=== PATIENT | female | born 1990 | race Caucasian/White ===

== ENCOUNTER 2016-11-30 16:51 | Emergency (ER) | payer OTHER ==
[2016-11-30 18:21] LABS: Basophils # (A) 0.1 k/uL (0-0.2); Basophils % (A) 1 %; CH 28.5; CHCM 33.5; Eosinophils # (A) 0.2 k/uL (0-0.7); Eosinophils % (A) 2 %; HCT 41.4 % (34.0-46.0); HDW 2.25; HGB 13.7 gm/dL (11.4-16.0); Luc # (Auto) 0.17; Luc % (Auto) 2; Lymphocytes # (A) 2.4 k/uL (1.0-4.8); Lymphocytes % (A) 23 %; MCH 28.2 pg (25.0-35.0); MCHC 33.1 g/dL (31.0-37.0); MCV 85.3 fL (80.0-100.0); Mean Platelet Volume 6.9; Monocytes # (A) 0.6 k/uL (0-1.0); Monocytes % (A) 5 %; Neutrophils # (A) 7.3 k/uL (1.3-7.7); Neutrophils % (A) 68 %; RBC 4.86 m/uL (3.80-5.40); RDW 12.7 % (11.5-15.5); WBC 10.7 k/uL (3.8-10.6); WBC (Perox) 10.96
[2016-11-30 18:48] LABS: Anion Gap 11 mmol/L; Blood Urea Nitrogen 13 mg/dL (7-17); Calcium 9.4 mg/dL (8.4-10.2); Carbon Dioxide 25 mmol/L (22-30); Chloride 105 mmol/L (98-107); Glucose 97 mg/dL (74-99); Non-African American GFR(MDRD) >60 (>60 ml/min/1.73 sqM); Potassium 3.9 mmol/L (3.5-5.1); Sodium 141 mmol/L (137-145)
--- NOTE | 2016-11-30 19:19 | US ---
EXAMINATION TYPE: US OB <=14 wks transvag DATE OF EXAM: 11/30/2016 7:05 PM COMPARISON: NONE CLINICAL HISTORY: Heavy vaginal bleeding. cramping EXAM PERFORMED: Transvaginal (TV) and Transabdominal (TA) EXAM MEASUREMENTS: GESTATIONAL AGE / DATING Physician Established: Not established Dates by LMP: (6 weeks/2 days) EDC: 07/24/2017 Dates by First Scan: No previous Dates by Current Scan for: No pole visualized on this exam MATERNAL ANATOMY Uterus: 7.9 x 4.7 x 5.9 cm Right Ovary: 3.4 x 2.0 x 1.9 cm Left Ovary: 2.0 x 1.2 x 2.0 cm Post CDS / Adnexa: wnl Presence of free fluid: No Presence of corpus luteal cyst: Yes, right ovary measuring 1.7 x 1.2 x 1.0 cm Presence of subchorionic bleed: No GESTATION / SURVEY MSD: 0.76 cm Too small to measure Yolk Sac (normal less than 6mm): 1 mm Date of LMP: 10/17/2016 Beta HcG (if available): Not available at time of exam TECHNOLOGIST IMPRESSION: Within the SABRINA/cervical area there is a probable gestational sac with yolk sac. No pole is visualized. Possible spontaneous in progress IMPRESSION: There is an irregular intrauterine gestational sac that measures 11 x 3 x 8 mm. There is a yolk sac. No pole is seen. I would consider possibilities of very early intrauterine as well as blighted ovum and incomplete in this patient with bleeding.
[2016-11-30 19:30] VITALS: BP 122/70; PULSE 97; RESP 18; TEMP 98.7
--- NOTE | 2016-11-30 19:31 | ED ---
General Adult HPI - General Chief complaint: Vaginal Bleeding Stated complaint: Vaginal Bleeding Time Seen by Provider: 11/30/16 17:37 Source: patient, family, RN notes reviewed, old records reviewed Mode of arrival: ambulatory Limitations: no limitations - History of Present Illness Initial comments: 25-year-old female presenting for vaginal bleeding. Patient states that she had a positive test about 3 weeks ago. She states over the past 24 hours she began having some vaginal bleeding. Today she had significant increase of the bleeding and passage of some tissue and clots. She called Dr. Charles's office and was sent for some outpatient lab testing. She states that she continued to bleed so she came to the ER for evaluation. She denies any significant abdominal pain associated. She states that she is . There are no complications with her first . She denies any dizziness or loss consciousness. She she denies any urinary symptoms. - Related Data Home Medications Medication Instructions Recorded Confirmed Pnv with Ca,No.72/Iron/FA 1 tab PO DAILY 10/20/14 11/30/16 [ Vitamin with Low Iron] Folic Acid 0.4 mg PO DAILY 11/30/16 11/30/16 Allergies Allergy/AdvReac Type Severity Reaction Status Date / Time macadamia nut oil Allergy Rash/Hives Verified 11/30/16 18:23 Review of Systems ROS Statement: Those systems with pertinent positive or pertinent negative responses have been documented in the HPI. ROS Other: All systems not noted in ROS Statement are negative. Past Medical History Past Medical History: Asthma Additional Past Medical History / Comment(s): O+, abs neg, Rub Imm, RPR NR, Hep B neg, toxo neg. History of Any Multi-Drug Resistant Organisms: None Reported Past Surgical History: Orthopedic Surgery Additional Past Surgical History / Comment(s): Ankle surgery. Past Anesthesia/Blood Transfusion Reactions: No Reported Reaction Past Psychological History: No Psychological Hx Reported Smoking Status: Never smoker Past Alcohol Use History: None Reported Past Drug Use History: None Reported - Past Family History Mother History Unknown: Yes Family Medical History: Hypertension General Exam - General Exam Comments Initial Comments: General: Awake and Alert. No acute distress. Does not appear acutely ill. Eyes: JERARDO, EOM intact. No nystagmus. No scleral icterus. HENT: Atraumatic, normocephalic. Mucous membranes moist. Trachea midline. Neck: The neck is supple, there is no tenderness or JVD. Cardiovascular: Regular rate and rhythm. No murmur, rub, or gallop is appreciated. Distal pulses intact. Respiratory: Lungs are clear to auscultation bilaterally. No wheezes, rales, rhonchi. No respiratory distress. Gastrointestinal: Soft, Nontender. No rebound or guarding. Non-distended. No masses or organomegaly noted. No CVA tenderness. Musculoskeletal: No tenderness. Normal ROM. No gross deformity. No strength deficits. Neurological: A&Ox3. CN II-XII grossly intact, There are no obvious motor or sensory deficits. Coordination appears grossly intact. Speech is normal. Skin: Skin is warm and dry and no rashes or lesions are noted. Psychiatric: Cooperative, appropriate mood & affect, normal judgment. Limitations: no limitations Course Vital Signs 11/30/16 11/30/16 17:01 19:28 Temperature 97.5 F L 98.7 F Pulse Rate 80 97 Respiratory 16 18 Rate Blood Pressure 131/96 122/70 O2 Sat by Pulse 100 97 Oximetry Medical Decision Making - Medical Decision Making 25-year-old female presenting for bleeding in early . Abdomen soft without evidence of peritonitis. Lab workup ordered, plan for US with bleeding in early . Ultrasound does show intrauterine gestational sac but no evidence of fetus at this point. Could reflect very early versus blighted ovum. Given the patient's clinical symptoms as concerning for partial miscarriage at this time. Labwork with stable CBC. Pt with O+ blood, does not require rhogam. Patient reevaluated, remained stable. Updated results and imaging. Discussed likely miscarriage at this time, but possible early . Discussed close follow-up with Dr. Charles for repeat beta hCG testing as well. I did call and discuss with Dr. Charles who agrees with plan for discharge home and outpatient follow-up. She states that her nurse will call to arrange for follow-up tomorrow with patient. Discussed continuing vitamins. Discussed expectations over the next few days in the event likely miscarriage regarding vaginal bleeding and cramping. Discussed concerning signs symptoms for immediate return to the ED. Patient and family are agreeable with plan and discharge home. - Lab Data Result diagrams: 11/30/16 18:10 11/30/16 18:10 Lab Results 11/30/16 11/30/16 11/30/16 Range/Units 18:10 18:10 18:10 WBC 10.7 H (3.8-10.6) k/uL RBC 4.86 (3.80-5.40) m/uL Hgb 13.7 (11.4-16.0) gm/dL Hct 41.4 (34.0-46.0) % MCV 85.3 (80.0-100.0) fL MCH 28.2 (25.0-35.0) pg MCHC 33.1 (31.0-37.0) g/dL RDW 12.7 (11.5-15.5) % Plt Count 244 (150-450) k/uL Neutrophils % 68 % Lymphocytes % 23 % Monocytes % 5 % Eosinophils % 2 % Basophils % 1 % Neutrophils # 7.3 (1.3-7.7) k/uL Lymphocytes # 2.4 (1.0-4.8) k/uL Monocytes # 0.6 (0-1.0) k/uL Eosinophils # 0.2 (0-0.7) k/uL Basophils # 0.1 (0-0.2) k/uL Sodium 141 (137-145) mmol/L Potassium 3.9 (3.5-5.1) mmol/L Chloride 105 (98-107) mmol/L Carbon Dioxide 25 (22-30) mmol/L Anion Gap 11 mmol/L BUN 13 (7-17) mg/dL Creatinine 0.58 (0.52-1.04) mg/dL Est GFR (MDRD) Af Amer >60 (>60 ml/min/1.73 sqM) Est GFR (MDRD) Non-Af >60 (>60 ml/min/1.73 sqM) Glucose 97 (74-99) mg/dL Calcium 9.4 (8.4-10.2) mg/dL Blood Type O Positive Blood Type Recheck No Antibody Screen NEGATIVE Spec Expiration Date 12/03/2016 - 2309 - Radiology Data Radiology results: report reviewed, image reviewed Disposition Clinical Impression: Incomplete miscarriage, Vaginal bleeding in Disposition: HOME SELF-CARE Condition: Stable Instructions: Miscarriage (ED) Referrals: None,Stated [Primary Care Provider] - 1-2 days Time of Disposition: 19:46
== END 2016-11-30 19:59 | disposition home or self-care (01) ==
LOC: EC 16:51
DX: O03.4 Incomplete spontaneous abortion without complication (principal); Z91.018 Allergy to other foods
CPT/HCPCS: 36415; 76801; 76817; 80048; 85025; 86850; 86900; 86901; 99284

== ENCOUNTER → 2016-11-30 | Outpatient (CLI) | payer OTHER | END | disposition home or self-care (01) | LOC: LABWHC1 13:57 | PROVIDERS: ATTEND Obstetrics & Gynecology | DX: Z34.80 Encounter for supervision of other normal pregnancy, unspecified trimester (principal); Z3A.00 Weeks of gestation of pregnancy not specified | CPT/HCPCS: 36415; 84702 ==

== ENCOUNTER → 2016-12-02 | Outpatient (CLI) | payer OTHER | END | disposition home or self-care (01) | LOC: LABWHC1 09:15 | PROVIDERS: ATTEND Obstetrics & Gynecology | DX: Z34.80 Encounter for supervision of other normal pregnancy, unspecified trimester (principal); Z3A.00 Weeks of gestation of pregnancy not specified | CPT/HCPCS: 36415; 84702 ==

== ENCOUNTER → 2017-04-20 | Outpatient (CLI) | payer OTHER ==
[2017-04-20 10:37] LABS: CH 27.9; CHCM 32.8; HCT 39.9 % (34.0-46.0); HDW 2.23; HGB 13.2 gm/dL (11.4-16.0); MCH 28.3 pg (25.0-35.0); MCHC 33.2 g/dL (31.0-37.0); MCV 85.4 fL (80.0-100.0); Mean Platelet Volume 6.6; RBC 4.67 m/uL (3.80-5.40); RDW 13.9 % (11.5-15.5); WBC 10.9 k/uL (3.8-10.6)
[2017-04-20 10:44] LABS: Glucose 59 mg/dL (74-99); Non-African American GFR(MDRD) >60 (>60 ml/min/1.73 sqM)
[2017-04-20 11:16] LABS: Hepatitis B Surface Ag Index 0.06
[2017-04-20 17:04] LABS: Treponemal Ab Non-Reactive (Non-Reactive)
[2017-04-21 04:36] LABS: Toxoplasma Antibody (IgG) <3.0 IU/mL (<7.2)
== END | disposition home or self-care (01) ==
LOC: LABWHC1 10:17
PROVIDERS: ATTEND Obstetrics & Gynecology
DX: Z34.81 Encounter for supervision of other normal pregnancy, first trimester (principal); R53.83 Other fatigue
CPT/HCPCS: 36415; 82565; 82947; 85027; 86762; 86777; 86778; 86780; 86850; 86900; 86901; 87340; 87390

== ENCOUNTER 2017-06-23 16:42 | Outpatient (CLI) | payer OTHER ==
[2017-06-23 19:19] VITALS: BP 118/69; PULSE 75; RESP 16; TEMP 98.2
--- NOTE | 2017-06-24 06:30 | P.MSEPDOC ---
Presenting Problems - Arrival Data Date of Arrival on Unit: 06/23/17 Time of Arrival on Unit: 16:42 Mode of Transport: Ambulatory - Complaint OB-Reason for Admission/Chief Complaint: Vaginal Bleeding Comment: cramping and spotting Medical History - Information : 3 Para: 1 Term: 1 : 0 Abortions: Spontaneous or Elective: 1 Number of Living Children: 1 - Gestational Age Expected Date of Delivery: 11/09/17 Gestational Age by IMELDA (wks/days): 20 Weeks and 1 Days Review of Systems - Review of Systems Constitutional: No problems Breast: No problems ENT: No problems Cardiovascular: No problems Respiratory: No problems Gastrointestinal: No problems Genitourinary: No problems Musculoskeletal: No problems Neurological: No problems Skin: No problems Vital Signs - Temperature Temperature: 98.2 F Temperature Source: Oral - Pulse Right Pulse Rate: 75 Pulse Assessment Method: Automatic Cuff - Respirations Respiratory Rate: 16 Oxygen Delivery Method: Room Air - Blood Pressure Right Arm Blood Pressure: 118/69 Blood Pressure Mean: 85 Blood Pressure Source: Automatic Cuff Medical Screen Scoring (Pre) - Cervical Exam Dilation: 0 cm = 0 - Uterine Contractions Frequency: N/A Duration: N/A Intensity: N/A - Maternal Vital Signs Maternal Temperature: N/A Maternal Blood Pressure: N/A Signs of Preeclampsia: N/A Maternal Respirations: N/A - Maternal Trauma Maternal Trauma: N/A - Assessment Heart Rate - NICHD Category: Category I (Normal) = 0 - Total Score Total Score (Pre): 0 - Level of Risk Level of Risk: N/A Physician Notification (Pre) - Physician Notified Physician Notified Date: 06/23/17 Physician Notified Time: 17:09 Spoke With: Carleen Irwin Order Received: Yes - Notification Comment Comment: cramping and spotting post intercourse, discharge if cervix closed Disposition - Disposition OB Disposition: Triage, Discharge to home, Written follow up instructions reviewed Discharge Date: 06/23/17 Discharge Time: 17:15 I agree with the RN Medical Screening Exam: Yes Risk & Benefit of care provided described in d/c instruction: Yes Diagnosis: SPOTTING COMPLICATING , SECOND TRIMESTER (Patient had had intercourse in the last 24 hours and thought to be secondary to this.)
== END 2017-06-23 17:15 | disposition home or self-care (01) ==
LOC: FBPOP 16:42
PROVIDERS: ATTEND Obstetrics & Gynecology
DX: O26.852 Spotting complicating pregnancy, second trimester (principal); Z3A.20 20 weeks gestation of pregnancy
CPT/HCPCS: 99213

== ENCOUNTER 2017-11-01 03:50 | Outpatient (CLI) | payer BC ==
[2017-11-01 04:24] VITALS: PULSE 96; RESP 16; TEMP 97.2
--- NOTE | 2017-11-01 07:09 | P.MSEPDOC ---
Presenting Problems - Arrival Data Date of Arrival on Unit: 11/01/17 Time of Arrival on Unit: 03:50 Mode of Transport: Wheelchair - Complaint OB-Reason for Admission/Chief Complaint: Possible Onset of Labor Medical History - Information : 3 Para: 1 Term: 1 : 0 Abortions: Spontaneous or Elective: 1 Number of Living Children: 1 - Gestational Age Gestational Age by IMELDA (wks/days): 38 Weeks and 6 Days - History Complications: GBS+ Review of Systems - Review of Systems Constitutional: No problems Breast: No problems ENT: No problems Cardiovascular: No problems Respiratory: No problems Gastrointestinal: No problems Genitourinary: No problems Musculoskeletal: No problems Neurological: No problems Skin: No problems Vital Signs - Temperature Temperature: 97.2 F Temperature Source: Temporal Artery Scan - Pulse Right Brachial Pulse Rate: 96 Pulse Assessment Method: Automatic Cuff - Respirations Respiratory Rate: 16 Oxygen Delivery Method: Room Air O2 Sat by Pulse Oximetry: 97 Medical Screen Scoring (Pre) - Cervical Exam Dilation: 4-7 cm = 2 Effacement: More than 50% = 2 Membranes: Intact - Uterine Contractions Frequency: > 5 minutes apart = 1 Duration: N/A Intensity: N/A - Maternal Vital Signs Maternal Temperature: N/A Maternal Blood Pressure: N/A Signs of Preeclampsia: N/A Maternal Respirations: N/A - Pain Assessment Pain Scale Used: Numeric (1 - 10) Pain Intensity: 0 - Maternal Trauma Maternal Trauma: N/A - Assessment Baseline FHR: 145 Heart Rate - NICHD Category: Category I (Normal) = 0 NST: Reactive Position: N/A Station: N/A - Total Score Total Score (Pre): 5 - Level of Risk Level of Risk: Low (0-5) Physician Notification (Pre) - Physician Notified Physician Notified Date: 11/01/17 Physician Notified Time: 05:14 Physician/Practitioner Notifed:: Dr. Durant Spoke With: Dr. Durant New Order Received: Yes - Notification Comment Comment: Dr. Durant given report on pt in triage. Pt c/o of contractions that started on 10/31 at 0300 and have started to occur more frequently. Reported on reactive nst and vag exam of /-2 with no change after one hour. Only 5 contractions noticed during initial hour. Orders recieved to d/c pt to home. Disposition - Disposition OB Disposition: Discharge to home Discharge Date: 11/01/17 Discharge Time: 05:20 I agree with the RN Medical Screening Exam: Yes Risk & Benefit of care provided described in d/c instruction: Yes Diagnosis: FALSE LABOR AT OR AFTER 37 COMPLETED WEEKS OF GESTATION
== END 2017-11-01 05:20 | disposition home or self-care (01) ==
LOC: FBPOP 03:50
PROVIDERS: ATTEND Obstetrics & Gynecology
DX: O47.1 False labor at or after 37 completed weeks of gestation (principal); Z3A.38 38 weeks gestation of pregnancy
CPT/HCPCS: 59025; 99213

== ENCOUNTER 2018-02-19 09:14 | Emergency (ER) | payer BC ==
[2018-02-19 09:54] LABS: Appearance,Urine Clear (Clear); Bilirubin,Urine Negative (Negative); Blood,Urine Negative (Negative); Color,Urine Yellow; Glucose,Urine (UA) Negative (Negative); Ketones,Urine Trace (Negative); Leukocyte Esterase,Urine Negative (Negative); Mucus,Urine Rare /hpf; Nitrite,Urine Negative (Negative); PH, Urine 8.5 (5.0-8.0); Protein,Urine 1+ (Negative); RBC,Urine 2 /hpf (0-5); Specific Gravity,Urine 1.027 (1.001-1.035); Squamous Epithelial Cell,Urine <1 /hpf (0-4); Urobilinogen,Urine <2.0 mg/dL (<2.0); WBC,Urine 1 /hpf (0-5)
[2018-02-19] MEDS ORDERED: SODIUM CHLORIDE 0.9% 1,000 ML IV STA ×2 (09:56)
[2018-02-19] MEDS ORDERED: ONDANSETRON 4 MG/2 ML VIAL IVP STA (09:56)
[2018-02-19] MEDS ORDERED: KETOROLAC 30 MG/ML 1 ML VIAL IVP STA (09:57)
--- NOTE | 2018-02-19 10:13 | ED ---
Nausea/Vomiting/Diarrhea HPI - General Chief complaint: Nausea/Vomiting/Diarrhea Stated complaint: Abd Pain/Back Pain Time Seen by Provider: 02/19/18 09:33 Source: patient, RN notes reviewed, old records reviewed Mode of arrival: ambulatory Limitations: no limitations - History of Present Illness Initial comments: this patient's a 27-year-old female presents emergency Department with a chief complaint of nausea vomiting and diarrhea for the past 3 days. Patient states that she went to visit [facility] urgent care and was sent here for an abnormal pH of her urine. She states that she has been feeling somewhat weak. Her lower abdominal pain radiates towards her back. She is foremost 4 months . Denies any vaginal bleeding or discharge. Last menstrual period was 2 weeks ago. Patient states that she has had no fever, does complain of chills.Patient denies any recent fever, chills, shortness of breath, chest pain , back pain, numbness or tingling, dysuria or hematuria, constipation or diarrhea, headaches or visual changes, or any other current symptoms - Related Data Home Medications Medication Instructions Recorded Confirmed Pnv,Calcium 72/Iron/Folic Acid 1 tab PO DAILY 10/20/14 11/04/17 [ Vitamin with Low Iron] Previous Rx's Medication Instructions Recorded Ibuprofen [Motrin] 600 mg PO Q6HR PRN #30 tab 11/05/17 Dicyclomine [Bentyl] 10 mg PO TID #12 capsule 02/19/18 Ondansetron Odt [Zofran Odt] 4 mg PO Q8HR PRN #12 tab 02/19/18 Allergies Allergy/AdvReac Type Severity Reaction Status Date / Time macadamia nut oil Allergy Rash/Hives Verified 02/19/18 09:27 Review of Systems ROS Statement: Those systems with pertinent positive or pertinent negative responses have been documented in the HPI. ROS Other: All systems not noted in ROS Statement are negative. Past Medical History Past Medical History: Asthma Additional Past Medical History / Comment(s): Obstetric history: First was a vaginal delivery 6 lbs. 10 oz. second she had a spontaneous . This is her third and she's had care with ms since 10 weeks. O+, abs neg, Rub Imm, RPR NR, Hep B neg, toxo neg. GBS positive History of Any Multi-Drug Resistant Organisms: None Reported Past Surgical History: Orthopedic Surgery Additional Past Surgical History / Comment(s): Ankle surgery. Past Anesthesia/Blood Transfusion Reactions: No Reported Reaction Past Psychological History: No Psychological Hx Reported Smoking Status: Never smoker Past Alcohol Use History: None Reported Past Drug Use History: None Reported - Past Family History Mother History Unknown: Yes Family Medical History: Hypertension General Exam - General Exam Comments Initial Comments: 27-year-old female. Alert and oriented. No acute distress. Limitations: no limitations General appearance: alert Head exam: Present: atraumatic, normocephalic, normal inspection Eye exam: Present: normal appearance, PERRL, EOMI. Absent: scleral icterus, conjunctival injection, periorbital swelling ENT exam: Present: normal exam, mucous membranes moist Neck exam: Present: normal inspection. Absent: tenderness, meningismus, lymphadenopathy Respiratory exam: Present: normal lung sounds bilaterally. Absent: respiratory distress, wheezes, rales, rhonchi, stridor Cardiovascular Exam: Present: regular rate, normal rhythm, normal heart sounds. Absent: systolic murmur, diastolic murmur, rubs, gallop, clicks GI/Abdominal exam: Present: soft, tenderness (left lower quadrant or tenderness. ), normal bowel sounds. Absent: distended, guarding, rebound, rigid Extremities exam: Present: normal inspection, full ROM, normal capillary refill. Absent: tenderness, pedal edema, joint swelling, calf tenderness Back exam: Present: normal inspection, CVA tenderness (R), CVA tenderness (L) Neurological exam: Present: alert, oriented X3, CN II-XII intact Psychiatric exam: Present: normal affect, normal mood Skin exam: Present: warm, dry, intact, normal color. Absent: rash Course Vital Signs 02/19/18 09:24 Temperature 99.0 F Pulse Rate 114 H Respiratory 20 Rate Blood Pressure 106/67 O2 Sat by Pulse 99 Oximetry - Reevaluation(s) Reevaluation #1: 02/19/18 10:56 evaluated resting comfortably in bed. She is feeling well. No abdominal tenderness on reexamination. Medical Decision Making - Medical Decision Making 27-year-old female presents emergency room lower abdominal pain for the past week. She did feel nauseous. She did have a coke today and tolerated that prior to coming here. She was sent here for an abnormal urine sample. She was told at [facility] that it was an elevated pH. Patient was given IV fluids and lab work here. Given Toradol and Zofran. Patient's white blood cell count is within normal limits. Normal kidney function. Urine pH was slightly elevated at 8.5. Likely sinus dehydration and lack of gastric acid. Patient had some minimal tenderness on exam. X-ray shows evidence of gastroenteritis. reevaluation patient has no significant tenderness. Sleeping and resting comfortably in bed. Discussed that I can manage patient's symptoms with Zofran and will prescribe for Bentyl. Discussed that she can follow-up with primary care provider. Discussed returning to emergency department if there is any worsening signs or symptoms. Patient understands treatment plan will comply. - Lab Data Result diagrams: 02/19/18 10:00 02/19/18 10:00 Lab Results 02/19/18 02/19/18 02/19/18 Range/Units 09:25 09:25 10:00 WBC (3.8-10.6) k/uL RBC (3.80-5.40) m/uL Hgb (11.4-16.0) gm/dL Hct (34.0-46.0) % MCV (80.0-100.0) fL MCH (25.0-35.0) pg MCHC (31.0-37.0) g/dL RDW (11.5-15.5) % Plt Count (150-450) k/uL Neutrophils % % Lymphocytes % % Monocytes % % Eosinophils % % Basophils % % Neutrophils # (1.3-7.7) k/uL Lymphocytes # (1.0-4.8) k/uL Monocytes # (0-1.0) k/uL Eosinophils # (0-0.7) k/uL Basophils # (0-0.2) k/uL Sodium 141 (137-145) mmol/L Potassium 3.9 (3.5-5.1) mmol/L Chloride 102 (98-107) mmol/L Carbon Dioxide 25 (22-30) mmol/L Anion Gap 14 mmol/L BUN 14 (7-17) mg/dL Creatinine 0.55 (0.52-1.04) mg/dL Est GFR (CKD-EPI)AfAm >90 (>60 ml/min/1.73 sqM) Est GFR (CKD-EPI)NonAf >90 (>60 ml/min/1.73 sqM) Glucose 129 H (74-99) mg/dL Calcium 9.5 (8.4-10.2) mg/dL Total Bilirubin 0.6 (0.2-1.3) mg/dL AST 26 (14-36) U/L ALT 43 (9-52) U/L Alkaline Phosphatase 85 (38-126) U/L Total Protein 7.0 (6.3-8.2) g/dL Albumin 4.4 (3.5-5.0) g/dL Amylase 64 (30-110) U/L Lipase 52 (23-300) U/L Urine Color Yellow Urine Appearance Clear (Clear) Urine pH 8.5 H (5.0-8.0) Ur Specific [place] 1.027 (1.001-1.035) Urine Protein 1+ H (Negative) Urine Glucose (UA) Negative (Negative) Urine Ketones Trace H (Negative) Urine Blood Negative (Negative) Urine Nitrite Negative (Negative) Urine Bilirubin Negative (Negative) Urine Urobilinogen <2.0 (<2.0) mg/dL Ur Leukocyte Esterase Negative (Negative) Urine RBC 2 (0-5) /hpf Urine WBC 1 (0-5) /hpf Ur Squamous Epith Cells <1 (0-4) /hpf Urine Mucus Rare H (None) /hpf Urine HCG, Qual Not Detected (Not Detectd) 02/19/18 Range/Units 10:00 WBC 10.4 (3.8-10.6) k/uL RBC 5.56 H (3.80-5.40) m/uL Hgb 14.8 (11.4-16.0) gm/dL Hct 45.1 (34.0-46.0) % MCV 81.0 (80.0-100.0) fL MCH 26.7 (25.0-35.0) pg MCHC 32.9 (31.0-37.0) g/dL RDW 14.1 (11.5-15.5) % Plt Count 242 (150-450) k/uL Neutrophils % 88 % Lymphocytes % 6 % Monocytes % 4 % Eosinophils % 1 % Basophils % 0 % Neutrophils # 9.2 H (1.3-7.7) k/uL Lymphocytes # 0.6 L (1.0-4.8) k/uL Monocytes # 0.5 (0-1.0) k/uL Eosinophils # 0.1 (0-0.7) k/uL Basophils # 0.0 (0-0.2) k/uL Sodium (137-145) mmol/L Potassium (3.5-5.1) mmol/L Chloride (98-107) mmol/L Carbon Dioxide (22-30) mmol/L Anion Gap mmol/L BUN (7-17) mg/dL Creatinine (0.52-1.04) mg/dL Est GFR (CKD-EPI)AfAm (>60 ml/min/1.73 sqM) Est GFR (CKD-EPI)NonAf (>60 ml/min/1.73 sqM) Glucose (74-99) mg/dL Calcium (8.4-10.2) mg/dL Total Bilirubin (0.2-1.3) mg/dL AST (14-36) U/L ALT (9-52) U/L Alkaline Phosphatase (38-126) U/L Total Protein (6.3-8.2) g/dL Albumin (3.5-5.0) g/dL Amylase (30-110) U/L Lipase (23-300) U/L Urine Color Urine Appearance (Clear) Urine pH (5.0-8.0) Ur Specific [place] (1.001-1.035) Urine Protein (Negative) Urine Glucose (UA) (Negative) Urine Ketones (Negative) Urine Blood (Negative) Urine Nitrite (Negative) Urine Bilirubin (Negative) Urine Urobilinogen (<2.0) mg/dL Ur Leukocyte Esterase (Negative) Urine RBC (0-5) /hpf Urine WBC (0-5) /hpf Ur Squamous Epith Cells (0-4) /hpf Urine Mucus (None) /hpf Urine HCG, Qual (Not Detectd) - Radiology Data Radiology results: report reviewed Nonobstructive bowel gas pattern. Correlate for enteritis or ileus, Follow up as indicated. Disposition Clinical Impression: Gastroenteritis, Dehydration Disposition: HOME SELF-CARE Condition: Good Instructions: Acute Nausea and Vomiting (ED) Additional Instructions: is to rest, increase her fluid intake. Use the nausea medicine and Bentyl prescription as directed. Return to the emergency department if any alarming signs or symptoms occur. Patient can follow up with primary care provider. Prescriptions: Dicyclomine [Bentyl] 10 mg PO TID #12 capsule Ondansetron Odt [Zofran Odt] 4 mg PO Q8HR PRN #12 tab PRN Reason: Nausea Is patient prescribed a controlled substance at d/c from ED?: No If prescribed controlled substance>3 days was MAPS reviewed?: No When asked, does pt state using other controlled substances?: No Referrals: None,Stated [Primary Care Provider] - 1-2 days Time of Disposition: 10:58
[2018-02-19 10:18] LABS: Basophils % (A) 0 %; Eosinophils # (A) 0.1 k/uL (0-0.7); Eosinophils % (A) 1 %; HCT 45.1 % (34.0-46.0); HGB 14.8 gm/dL (11.4-16.0); Lymphocytes # (A) 0.6 k/uL (1.0-4.8); Lymphocytes % (A) 6 %; MCH 26.7 pg (25.0-35.0); MCHC 32.9 g/dL (31.0-37.0); Mean Platelet Volume 6.4; Monocytes # (A) 0.5 k/uL (0-1.0); Monocytes % (A) 4 %; Neutrophils # (A) 9.2 k/uL (1.3-7.7); Neutrophils % (A) 88 %; Platelet Count 242 k/uL (150-450); RBC 5.56 m/uL (3.80-5.40); RDW 14.1 % (11.5-15.5); WBC 10.4 k/uL (3.8-10.6)
[2018-02-19 10:29] LABS: ALT 43 U/L (9-52); AST 26 U/L (14-36); Albumin 4.4 g/dL (3.5-5.0); Alkaline Phosphatase 85 U/L (38-126); Amylase 64 U/L (30-110); Anion Gap 14 mmol/L; Blood Urea Nitrogen 14 mg/dL (7-17); Calcium 9.5 mg/dL (8.4-10.2); Carbon Dioxide 25 mmol/L (22-30); Chloride 102 mmol/L (98-107); Glucose 129 mg/dL (74-99); Lipase 52 U/L (23-300); Potassium 3.9 mmol/L (3.5-5.1); Sodium 141 mmol/L (137-145); Total Bilirubin 0.6 mg/dL (0.2-1.3)
--- NOTE | 2018-02-19 10:30 | XR ---
Abdomen HISTORY: Pain, nausea and vomiting Frontal view of the abdomen on 2 images No comparisons Lung bases are clear. No evident pneumoperitoneum or bowel obstruction. There may be a spinal curvatu re. Bone mineralization is normal. There are air-fluid levels without bowel distention. IMPRESSION: Nonobstructive bowel gas pattern. Correlate for enteritis or ileus, follow-up as indicate d.
[2018-02-19 11:10] VITALS: BP 118/52; PULSE 89; RESP 18; TEMP 98.8
== END 2018-02-19 11:10 | disposition home or self-care (01) ==
LOC: EC 09:14
DX: K52.9 Noninfective gastroenteritis and colitis, unspecified (principal); E86.0 Dehydration; Z91.018 Allergy to other foods
CPT/HCPCS: 36415; 80053; 82150; 83690; 85025; 81001; 81025; 74018; 99284; 96374; 96375; 96361; J2405; J1885

== ENCOUNTER → 2022-07-14 | Outpatient (CLI) | payer OTHER ==
[2022-07-14 18:48] LABS: Basophils # (A) 0.06 X 10*3/uL (0.00-0.10); Basophils % (A) 0.5 %; Eosinophils # (A) 0.19 X 10*3/uL (0.04-0.35); Eosinophils % (A) 1.7 %; HCT 43.4 % (37.2-46.3); Immature Grans, Automated 0.3 %; Lymphocytes # (A) 1.84 X 10*3/uL (0.90-5.00); Lymphocytes % (A) 16.1 %; MCH 27.9 pg (27.0-32.0); MCHC 32.3 g/dL (32.0-37.0); MCV 86.6 fL (80.0-97.0); Mean Platelet Volume 9.6 fL (9.5-12.2); Monocytes # (A) 0.64 X 10*3/uL (0.20-1.00); Monocytes % (A) 5.6 %; NRBC Per 100 WBC 0 /100 WBCS (0.0-0.0); Neutrophils # (A) 8.69 X 10*3/uL (1.80-7.70); Neutrophils % (A) 75.8 %; Platelet Count 304 X 10*3/uL (140-440); RBC 5.01 X 10*6/uL (4.10-5.20); RDW 12.8 % (11.5-14.5); WBC 11.46 X 10*3/uL (4.50-10.00)
== END | disposition home or self-care (01) ==
LOC: LABPAT 12:16
PROVIDERS: ATTEND Obstetrics & Gynecology
DX: Z01.818 Encounter for other preprocedural examination (principal)
CPT/HCPCS: 85025

== ENCOUNTER 2022-07-15 11:25 | Day surgery (SDC) | payer OTHER ==
[2022-07-14 15:16] VITALS: BMI 22.7
--- NOTE | 2022-07-15 08:45 | P.HPOB ---
History of Present Illness H&P Date: 07/15/22 Chief Complaint: missed ab 31 year old presents with missed ab at 10 weeks for a suction D&C. Review of Systems All systems: negative Constitutional: Denies chills, Denies fever Eyes: denies blurred vision, denies pain Ears, nose, mouth and throat: Denies headache, Denies sore throat Cardiovascular: Denies chest pain, Denies shortness of breath Respiratory: Denies cough Gastrointestinal: Denies abdominal pain, Denies diarrhea, Denies nausea, Denies vomiting Genitourinary: Denies dysuria, Denies hematuria Musculoskeletal: Denies myalgias Integumentary: Denies pruritus, Denies rash Neurological: Denies numbness, Denies weakness Psychiatric: Denies anxiety, Denies depression Endocrine: Denies fatigue, Denies weight change Past Medical History Past Medical History: Asthma, GERD/Reflux Additional Past Medical History / Comment(s): Hx Childhood Asthma. History of Any Multi-Drug Resistant Organisms: None Reported Past Surgical History: Orthopedic Surgery Additional Past Surgical History / Comment(s): Left ankle surgery with 2 screws. Past Anesthesia/Blood Transfusion Reactions: No Reported Reaction Past Psychological History: No Psychological Hx Reported Smoking Status: Never smoker Past Alcohol Use History: None Reported Past Drug Use History: None Reported - Past Family History Mother History Unknown: Yes Family Medical History: Hypertension Medications and Allergies Home Medications Medication Instructions Recorded Confirmed Type Vit No.179/Iron/Folic 1 each PO DAILY 07/14/22 07/14/22 History [ Tablet] Allergies Allergy/AdvReac Type Severity Reaction Status Date / Time macadamia nut oil Allergy Rash/Hives Verified 07/14/22 15:06 Exam Osteopathic Statement: *. No significant issues noted on an osteopathic structural exam other than those noted in the History and Physical/Consult. Intake and Output 07/14/22 07/15/22 07/15/22 22:59 06:59 14:59 Other: Weight 65.771 kg HEart: RRR Lungs: CTAB Abdomen: soft, nontender Extremeties: neg parviz's Assessment and Plan (1) Missed Status: Acute Code(s): O02.1 - MISSED SNOMED Code(s): 98565312 Plan: 1. suction D&C
[~2022-07-15 11:25] MED LIST: Pre Op ABX Message 1 EACH MISC MISCELLANE ONE
[2022-07-15] MEDS ORDERED: LACTATED RINGERS 1,000 ML IV ONE (11:55)
[2022-07-15] MEDS ORDERED: ONDANSETRON 4 MG/2 ML VIAL ONE (12:10)
[2022-07-15] MEDS ORDERED: DEXAMETHASONE SOD PHOSPHATE 4 MG/ML 1 ML VIAL IVP ONE (12:11)
[2022-07-15] MEDS ORDERED: ONDANSETRON 4 MG/2 ML VIAL IVP ONE (12:12)
[2022-07-15] MEDS ORDERED: MIDAZOLAM 2 MG/2 ML VIAL IVP ONE (12:43)
[2022-07-15] MEDS ORDERED: PROPOFOL 10 MG/ML 20 ML VIAL IV ONE (13:00)
[2022-07-15] MEDS ORDERED: MIDAZOLAM 2 MG/2 ML VIAL ONE (13:00)
[2022-07-15] MEDS ORDERED: fentaNYL (PF) 50 MCG/ML 2 ML AMP ONE (13:00)
[2022-07-15] MEDS ORDERED: LIDOCAINE 2% INJ 20 MG/ML (2 ML VIAL) ONE (13:00)
[2022-07-15] MEDS ORDERED: SUCCINYLCHOLINE CHLORIDE 200 MG/10 ML VIAL IV ONE (13:00)
[2022-07-15] MEDS ORDERED: KETOROLAC 15 MG/ML 1 ML VIAL IVP ONE (13:34)
[2022-07-15 14:01] VITALS: TEMP 97.7
[2022-07-15 14:18] VITALS: RESP 18
[2022-07-15 14:32] VITALS: BP 107/70; PULSE 74
[2022-07-15] MEDS ORDERED: HYDROmorphone 0.5 MG/0.5 ML SYRINGE IVP ONE (14:38)
--- NOTE | 2022-07-30 11:09 | P.OP ---
Date of Procedure: 07/15/22 Preoperative Diagnosis: 1. missed Postoperative Diagnosis: 1. missed Procedure(s) Performed: Suction D&C Anesthesia: YULISSA Surgeon: Melody Charles Estimated Blood Loss (ml): 100 IV fluids (ml): 200 Urine output (ml): 20 Pathology: other (Products of conception) Condition: stable Disposition: PACU Description of Procedure: Patient is taken the operating room and general anesthesia was obtained without difficulty. She is prepped and draped in normal sterile fashion dorsal lithotomy position, legs placed in the candycane stirrups. Bladder was drained of all urine. Weighted speculum placed in vagina the anterior lip the cervix was grasped with single-tooth tenaculum. Cervix is dilated to #8 Hegar dilator. A #8 curved suction curet was introduced into the uterus passed several times to remove blood and tissue. Sharp curet was gently used to ensure all tissue had been removed and the suction curet was used a few more times. Hemostasis was assured. Patient will she well. Sponge and instrument counts correct 2. She was taken to recovery in stable condition.
== END 2022-07-15 14:53 | disposition home or self-care (01) ==
LOC: OR 11:25
PROVIDERS: ATTEND Obstetrics & Gynecology
DX: O02.1 Missed abortion (principal); J45.909 Unspecified asthma, uncomplicated; K21.9 Gastro-esophageal reflux disease without esophagitis; Z98.890 Other specified postprocedural states; Z82.49 Family history of ischemic heart disease and other diseases of the circulatory system; Z91.018 Allergy to other foods
CPT/HCPCS: 86900; 86901; 88305; 86850; 59820; J2250; J0330; J1100; J2405; J3010; J1885; J2704; J1170; J2001

== ENCOUNTER → 2023-07-22 | Outpatient (CLI) | payer OTHER ==
[2023-07-22 13:35] LABS: MCH 28.4 pg (25.0-35.0); MCHC 33.3 g/dL (31.0-37.0); MCV 85.3 fL (80.0-100.0); Mean Platelet Volume 7.2; Platelet Count 240 k/uL (150-450); RBC 4.57 m/uL (3.80-5.40); WBC 11.9 k/uL (3.8-10.6)
== END | disposition home or self-care (01) ==
LOC: LABWHC1 12:03
PROVIDERS: ATTEND Obstetrics & Gynecology
DX: Z34.82 Encounter for supervision of other normal pregnancy, second trimester (principal); Z3A.00 Weeks of gestation of pregnancy not specified
CPT/HCPCS: 36415; 82950; 85027

== ENCOUNTER 2023-11-04 03:36 | Inpatient (IN) | payer OTHER ==
[2023-11-04] MEDS ORDERED: TRANEXAMIC 1,000 MG/100ML-NACL 1,000 MG in EMPTY BAG 1 BAG IV PRN (04:11)
[2023-11-04] MEDS ORDERED: LIDOCAINE 0.5% (PF) 5 MG/ML (50 ML SDV) SQ PRN (04:11)
[2023-11-04] MEDS ORDERED: CARBOPROST TROMETHAMINE 250 MCG/ML 1 ML AMP IM PRN (04:11)
[2023-11-04] MEDS ORDERED: miSOPROStoL 200 MCG TAB PO PRN (04:11)
[2023-11-04] MEDS ORDERED: TERBUTALINE 1 MG/ML VIAL SQ PRN (04:11)
[2023-11-04] MEDS ORDERED: OXYTOCIN 10 UNIT/ML 1 ML VIAL IM PRN (04:11)
[2023-11-04] MEDS ORDERED: METHYLERGONOVINE 0.2 MG/ML 1 ML AMP IM PRN (04:11)
[2023-11-04] MEDS ORDERED: OXYTOCIN 30 UNITS/500 ML NS 30 UNIT in SALINE 1 500ML.BAG IV SCH ×2 (04:15→07:45)
[2023-11-04] MEDS ORDERED: LACTATED RINGERS 1,000 ML IV SCH (04:15)
[2023-11-04] MEDS ORDERED: AMPICILLIN 2,000 MG in SODIUM CHLORIDE 0.9% 100 ML IVPB ONE (04:30)
[2023-11-04 05:00] LABS: Basophils % (A) 0 %; Eosinophils # (A) 0.2 k/uL (0-0.7); Eosinophils % (A) 2 %; HCT 37.8 % (34.0-46.0); HGB 12.1 gm/dL (11.4-16.0); Hypochromasia Slight; Lymphocytes # (A) 2.4 k/uL (1.0-4.8); Lymphocytes % (A) 18 %; MCH 24.4 pg (25.0-35.0); MCHC 32.1 g/dL (31.0-37.0); Mean Platelet Volume 8.3; Monocytes # (A) 0.6 k/uL (0-1.0); Monocytes % (A) 5 %; Neutrophils # (A) 9.7 k/uL (1.3-7.7); Neutrophils % (A) 73 %; Platelet Count 247 k/uL (150-450); RBC 4.98 m/uL (3.80-5.40); RDW 13.5 % (11.5-15.5); WBC 13.3 k/uL (3.8-10.6)
[2023-11-04 05:20] LABS: ALT 28 U/L (4-34); AST 32 U/L (14-36); African American GFR (CKD) >90 (>60 ml/min/1.73 sqM); Blood Urea Nitrogen 6 mg/dL (7-17); LDH 190 U/L (120-246); Magnesium 1.8 mg/dL (1.6-2.3); Non-African American GFR(CKD) >90 (>60 ml/min/1.73 sqM); Uric Acid 3.8 mg/dL (3.7-7.4)
[2023-11-04 05:25] LABS: INR 0.8 (<1.2); Partial Thromboplastin Time 22.3 sec (22.0-30.0); Prothrombin Time 9.4 sec (10.0-12.5)
[2023-11-04 05:47] LABS: Appearance,Urine Clear (Clear); Bacteria,Urine Rare /hpf; Bilirubin,Urine Negative (Negative); Blood,Urine Trace (Negative); Color,Urine Colorless; Glucose,Urine (UA) Negative (Negative); Ketones,Urine Negative (Negative); Leukocyte Esterase,Urine Trace (Negative); Mucus,Urine Rare /hpf; Nitrite,Urine Negative (Negative); PH, Urine 6.5 (5.0-8.0); Protein,Urine Negative (Negative); RBC,Urine <1 /hpf (0-5); Specific Gravity,Urine 1.009 (1.001-1.035); Squamous Epithelial Cell,Urine 1 /hpf (0-4); Urobilinogen,Urine <2.0 mg/dL (<2.0); WBC,Urine 1 /hpf (0-5)
[2023-11-04 05:55] LABS: Creatinine,Urine Random 47.1 mg/dL; Protein/Creatinine Ratio,Urine 0.276
[2023-11-04] MEDS ORDERED: fentaNYL (PF) 50 MCG/ML 5 ML AMP ONE (06:40)
[2023-11-04] MEDS ORDERED: ROPIVACAINE 5 MG/ML 30 ML VIAL ONE (06:40)
[2023-11-04] MEDS ORDERED: SODIUM CHLORIDE 0.9% 250 ML BAG ONE (06:40)
[2023-11-04] MEDS ORDERED: ZOLPIDEM 5 MG TAB PO PRN ×2 (07:37→19:52)
[2023-11-04] MEDS ORDERED: diphenhydrAMINE 50 MG/ML 1 ML VIAL IVP PRN ×4 (07:37→19:51)
[2023-11-04] MEDS ORDERED: BENZOCAINE/MENTHOL SPRAY 1 GM/SPRAY AEROSOL TOPICAL PRN ×2 (07:37→19:50)
[2023-11-04] MEDS ORDERED: ACETAMINOPHEN TAB 325 MG TAB PO PRN ×2 (07:37→19:50)
[2023-11-04] MEDS ORDERED: HYDROCORTISONE 2.5% RECTAL CREAM 30 GM TUBE RECTAL PRN ×2 (07:37→19:51)
[2023-11-04] MEDS ORDERED: LANOLIN CREAM 5 GM TUBE TOPICAL PRN ×2 (07:37→19:51)
[2023-11-04] MEDS ORDERED: diphenhydrAMINE 25 MG CAP PO PRN ×2 (07:37→19:50)
[2023-11-04] MEDS ORDERED: SIMETHICONE 80 MG CHEWABLE PO PRN ×2 (07:37→19:52)
[2023-11-04] MEDS ORDERED: diphenhydrAMINE 50 MG CAP PO PRN ×2 (07:37→19:50)
[2023-11-04] MEDS ORDERED: SENNOSIDES-DOCUSATE SODIUM 1 EACH TAB PO SCH (08:00)
[2023-11-04] MEDS: IBUPROFEN 600 MG TAB PO PRN ×3 (08:07→19:58)
--- NOTE | 2023-11-04 08:52 | P.HPOB ---
History of Present Illness H&P Date: 11/04/23 Chief Complaint: Labor 32-year-old presents at 39 weeks and 4 days in active labor. Her cervix was 5 cm dilated, 80% effaced, -1 station. She is anayeli every 3 minutes. heart tones 135 with moderate variability and reactive. Review of Systems All systems: negative Constitutional: Denies chills, Denies fever Eyes: denies blurred vision, denies pain Ears, nose, mouth and throat: Denies headache, Denies sore throat Cardiovascular: Denies chest pain, Denies shortness of breath Respiratory: Denies cough Gastrointestinal: Denies abdominal pain, Denies diarrhea, Denies nausea, Denies vomiting Genitourinary: Denies dysuria, Denies hematuria Musculoskeletal: Denies myalgias Integumentary: Denies pruritus, Denies rash Neurological: Denies numbness, Denies weakness Psychiatric: Denies anxiety, Denies depression Endocrine: Denies fatigue, Denies weight change Past Medical History Past Medical History: Asthma, GERD/Reflux Additional Past Medical History / Comment(s): Hx Childhood Asthma. History of Any Multi-Drug Resistant Organisms: None Reported Past Surgical History: Orthopedic Surgery Additional Past Surgical History / Comment(s): Left ankle surgery with 2 screws. Past Anesthesia/Blood Transfusion Reactions: No Reported Reaction Past Psychological History: No Psychological Hx Reported Smoking Status: Never smoker Past Alcohol Use History: None Reported Past Drug Use History: None Reported - Past Family History Mother History Unknown: Yes Family Medical History: Hypertension Medications and Allergies Home Medications Medication Instructions Recorded Confirmed Type Vit No.179/Iron/Folic 1 each PO DAILY 07/14/22 11/04/23 History [ Tablet] Famotidine [Pepcid AC] 10 mg PO DAILY 11/04/23 11/04/23 History Omeprazole [PriLOSEC] 40 mg PO DAILY 11/04/23 11/04/23 History Allergies Allergy/AdvReac Type Severity Reaction Status Date / Time macadamia nut oil Allergy Rash/Hives Verified 11/04/23 05:39 Exam Osteopathic Statement: *. No significant issues noted on an osteopathic structural exam other than those noted in the History and Physical/Consult. Vital Signs Temp Pulse Resp BP 11/04/23 08:23 97.3 F L 82 16 114/82 11/04/23 08:08 98.1 F 76 17 110/72 11/04/23 07:53 84 17 128/69 11/04/23 07:38 82 18 132/59 11/04/23 03:50 96.8 F L 83 16 156/71 Intake and Output 11/03/23 11/04/23 11/04/23 22:59 06:59 14:59 Intake Total 167 Output Total 150 Balance 17 Intake: Intake, IV Titration 167 Amount Oxytocin 30 Units/500 ml 167 Ns 30 unit In Saline 1 500ml.bag @ Per Protocol IV .Q0M [facility] Rx#:[id number] Output: Estimated Blood Loss 150 Other: # Voids 1 Weight 85.275 kg Heart: Regular rate and rhythm Lungs: Clear to auscultation bilaterally Abdomen: Soft, nontender Extremities: Negative Homans sign Results Result Diagrams: 11/04/23 04:45 11/04/23 04:45 Abnormal Lab Results - Last 24 Hours (Table) 11/04/23 11/04/23 11/04/23 Range/Units 04:30 04:45 04:45 WBC 13.3 H (3.8-10.6) k/uL MCV 76.0 L (80.0-100.0) fL MCH 24.4 L (25.0-35.0) pg Neutrophils # 9.7 H (1.3-7.7) k/uL PT 9.4 L (10.0-12.5) sec Fibrinogen 567 H (200-500) mg/dL BUN (7-17) mg/dL Creatinine (0.52-1.04) mg/dL Urine Blood Trace H (Negative) Ur Leukocyte Esterase Trace H (Negative) Urine Bacteria Rare H (None) /hpf Urine Mucus Rare H (None) /hpf 11/04/23 Range/Units 04:45 WBC (3.8-10.6) k/uL MCV (80.0-100.0) fL MCH (25.0-35.0) pg Neutrophils # (1.3-7.7) k/uL PT (10.0-12.5) sec Fibrinogen (200-500) mg/dL BUN 6 L (7-17) mg/dL Creatinine 0.40 L (0.52-1.04) mg/dL Urine Blood (Negative) Ur Leukocyte Esterase (Negative) Urine Bacteria (None) /hpf Urine Mucus (None) /hpf Assessment and Plan (1) Normal labor Current Visit: No Status: Resolved Code(s): O80 - ENCOUNTER FOR FULL-TERM UNCOMPLICATED DELIVERY; Z37.9 - OUTCOME OF DELIVERY, UNSPECIFIED SNOMED Code(s): 34314656 Plan: 1. Expectant management 2. Antibiotics for GBS prophylaxis 3. Anticipate normal vaginal delivery
--- NOTE | 2023-11-04 08:54 | P.PROBDLV ---
Vaginal Delivery Note - . Vaginal Delivery Note: 32-year-old presents at 39 weeks and 4 days in active labor. Her cervix was 5 cm dilated, 80% effaced, -1 station. She is anayeli every 3 minutes. heart tones 135 with moderate variability and reactive. Patient was admitted to [facility] and IV antibiotics started. When she was uncomfortable and 6 cm dilated she got an epidural. She was completely dilated and lived with her 7:00 and amniotomy was performed, clear fluid noted. She pushed, delivered a viable female infant over intact perineum under epidural anesthesia at 7:21 AM. Head delivered OA, anterior shoulder delivered gentle downward guidance. The posterior shoulder and rest of body. Nose and mouth bulb suctioned, cord clamped and cut, infant placed on mother's abdomen. Apgars 9, 10, weight 7 lbs. 4 oz. Assented delivered spontaneously, intact with three- vessel cord at 7:23 AM. Vagina, cervix, perineum inspected. First-degree midline laceration was repaired with 3-0 Vicryl. Estimated blood loss 200 mL. Mother and baby in stable condition.
[2023-11-04] MEDS ORDERED: AMPICILLIN 1,000 MG in SODIUM CHLORIDE 0.9% 50 ML IVPB SCH (09:00)
[2023-11-04] MEDS: SENNOSIDES-DOCUSATE SODIUM 1 EACH TAB PO SCH (19:58)
[2023-11-05] MEDS: IBUPROFEN 600 MG TAB PO PRN ×2 (06:49→13:00)
[2023-11-05 07:29] LABS: Basophils % (A) 0 %; Eosinophils # (A) 0.2 k/uL (0-0.7); Eosinophils % (A) 2 %; HCT 34.8 % (34.0-46.0); HGB 11.3 gm/dL (11.4-16.0); Hypochromasia Moderate; Lymphocytes # (A) 2.5 k/uL (1.0-4.8); Lymphocytes % (A) 18 %; MCH 24.9 pg (25.0-35.0); MCHC 32.4 g/dL (31.0-37.0); MCV 76.8 fL (80.0-100.0); Mean Platelet Volume 8.1; Monocytes # (A) 0.7 k/uL (0-1.0); Monocytes % (A) 5 %; Neutrophils # (A) 10.3 k/uL (1.3-7.7); Neutrophils % (A) 74 %; Platelet Count 222 k/uL (150-450); RBC 4.53 m/uL (3.80-5.40); RDW 13.6 % (11.5-15.5); WBC 13.8 k/uL (3.8-10.6)
--- NOTE | 2023-11-05 07:59 | P.DS ---
Providers Date of admission: 11/04/23 04:12 Expected date of discharge: 11/05/23 Attending physician: Melody Charles Primary care physician: Stated None - Discharge Diagnosis(es) (1) Normal labor Current Visit: No Status: Resolved (2) Normal vaginal delivery Current Visit: No Status: Acute Hospital Course: Deepak presented in active labor. She underwent a normal vaginal delivery. course uneventful. She denies nausea, vomiting, chest pain, shortness of breath or calf pain. Patient will be discharged home day #1 in stable condition to follow-up with me in 6 weeks. Plan - Discharge Summary New Discharge Prescriptions: New Ibuprofen [Motrin] 600 mg PO Q6HR PRN #30 tab PRN Reason: Mild Pain (Scale 1 To 3) No Action Vit No.179/Iron/Folic [ Tablet] 1 each PO DAILY Omeprazole [PriLOSEC] 40 mg PO DAILY Famotidine [Pepcid AC] 10 mg PO DAILY Discharge Medication List Vit No.179/Iron/Folic [ Tablet] 1 each PO DAILY 07/14/22 [History] Famotidine [Pepcid AC] 10 mg PO DAILY 11/04/23 [History] Omeprazole [PriLOSEC] 40 mg PO DAILY 11/04/23 [History] Ibuprofen [Motrin] 600 mg PO Q6HR PRN #30 tab 11/05/23 [Rx] Follow up Appointment(s)/Referral(s): Melody Charles DO [Doctor of Osteopathic Medicine] - 12/17/23 11:15 am Discharge Disposition: HOME SELF-CARE
[2023-11-05] MEDS: SENNOSIDES-DOCUSATE SODIUM 1 EACH TAB PO SCH (08:47)
[2023-11-05 10:42] VITALS: BP 115/73; PULSE 82; RESP 17; TEMP 97.6
== END 2023-11-05 16:35 | disposition home or self-care (01) | DRG 807 ==
LOC: FBPOP 03:36 → 4FBP 04:12
PROVIDERS: ADMIT Obstetrics & Gynecology; ATTEND Obstetrics & Gynecology
DX: O99.52 Diseases of the respiratory system complicating childbirth (principal); J45.909 Unspecified asthma, uncomplicated; O99.62 Diseases of the digestive system complicating childbirth; K21.9 Gastro-esophageal reflux disease without esophagitis; O99.824 Streptococcus B carrier state complicating childbirth; O70.0 First degree perineal laceration during delivery; Z28.310 Unvaccinated for COVID-19; Z79.899 Other long term (current) drug therapy; Z3A.39 39 weeks gestation of pregnancy; Z37.0 Single live birth
CPT/HCPCS: 59025; 81001; 82565; 82570; 83615; 83735; 84112; 84156; 84450; 84460; 84520; 84550; 85025; 85384; 85610; 85730; 86850; 86900; 86901; 99213